=== PATIENT | female | born 1960 | race African-American/Black ===

== ENCOUNTER 2017-08-01 07:38 | Emergency (ER) | payer MEDICAID, MEDICARE ==
[~2017-08-01] VITALS: Ht 170.2 cm; Wt 82.0 kg
[2017-08-01] MEDS ORDERED: KETOROLAC 60MG/2ML VIAL IM STA (12:17)
[2017-08-01 12:55] LABS: CLARITY URINE CLOUDY (CLEAR); COLOR URINE YELLOW (YELLOW); KETONES URINE NEGATIVE (NEGATIVE); LEUKOCYTE ESTERASE URINE 3+ (NEGATIVE); NITRITE URINE POSITIVE (NEGATIVE); OCCULT BLOOD URINE 1+ (NEGATIVE); PROTEIN URINE NEGATIVE (NEGATIVE); SPECIFIC GRAVITY URINE 1.017 (1.005-1.030); UROBILINOGEN URINE 0.2 E.U./dL (0.2-1.0)
[2017-08-01 14:30] VITALS: BP 156/66
== END 2017-08-01 14:56 | disposition home or self-care (01) ==
LOC: ER 08:16
DX: M54.40 Lumbago with sciatica, unspecified side (principal); N39.0 Urinary tract infection, site not specified; Z88.5 Allergy status to narcotic agent; X50.0XXA Overexertion from strenuous movement or load, initial encounter; Y93.89 Activity, other specified; Y92.9 Unspecified place or not applicable
CPT/HCPCS: 72100; 81003; 87077; 87086; 87186; 96372; 99285; J1885